=== PATIENT | male | born 1990 | race Caucasian/White ===

== ENCOUNTER 2020-01-30 03:05 | Emergency (ER) | payer OTHER ==
[2020-01-30] MEDS ORDERED: BABY ASPIRIN 81 MG CHEW PO ONE (03:23)
--- NOTE | 2020-01-30 03:24 | ERPHSYRPT ---
- History of Present Illness Time Seen by Provider: 01/30/20 03:23 Historian: patient Exam Limitations: no limitations Physician History: Is a 30-year-old white male who approximately 2 weeks ago began having some intermittent chest pain. Ultimately, he was seen by target setter who performed a work-up including an echocardiogram. The target setter did not require any treatment for this patient or any restrictions of his activity. Patient symptoms continued. He was having some sinus issues and was put on steroids for this condition. He completed that steroid treatment. He was seen for ear infection as well as some anxiety issues. He was restarted on steroids and given a prescription for hydroxyzine and Lexapro. The hydroxyzine and Lexapro was to help with his anxiety issues. Patient states he has not been taking his hydroxyzine. He has been tapering down to once a day steroid dose. He states he has been on the steroids, this round, and Lexapro for approximately 6 days. He is here today because of a burning sensation in his chest that is localized substernal without radiation. At least seen at an emergency room and underwent a chest x-ray and CAT scan of the chest. The CAT scan of the chest that was done within the last 2 weeks showed no pulmonary emboli and no acute cardiopulmonary process. Patient is refusing chest x-ray today because he had the chest x-ray and CAT scan of the chest within the last couple weeks. Timing/Duration: week(s) (Last couple weeks), intermittent, worse Quality: burning Location: substernal Chest Pain Radiation: no radiation Severity of Pain-Max: moderate Severity of Pain-Current: mild Modifying Factors: Improves With: nothing Associated Symptoms: palpitations, diaphoresis, other (Insomnia) Prior Chest Pain/Cardiac Workup: echocardiography, recently seen/treated Nitro Today/Relief: no nitro taken today Aspirin Treatment Today: no aspirin today Allergies/Adverse Reactions: No Known Drug Allergies Allergy (Verified 01/30/20 03:29) Home Medications: Escitalopram Oxalate 10 mg [Lexapro 10 MG] 10 mg PO DAILY 01/30/20 [History] Prednisone 20 mg [Deltasone 20 mg] 20 mg PO DAILY 01/30/20 [History] Travel Risk - International Travel Have you traveled outside of the country in past 3 weeks: No - Coronavirus Screening Are you exhibiting any of the following symptoms?: No Close contact with a COVID-19 positive Pt in past 14-21 Days: No - Review of Systems Constitutional: No Symptoms Eyes: No Symptoms Ears, Nose, & Throat: No Symptoms Respiratory: No Symptoms Cardiac: Chest Pain Abdominal/Gastrointestinal: No Symptoms Genitourinary Symptoms: No Symptoms Musculoskeletal: No Symptoms Skin: No Symptoms Neurological: No Symptoms Psychological: No Symptoms Endocrine: No Symptoms Hematologic/Lymphatic: No Symptoms Immunological/Allergic: No Symptoms All Other Systems: Reviewed and Negative - Past Medical History Pertinent Past Medical History: Yes Neurological History: No Pertinent History ENT History: No Pertinent History Cardiac History: No Pertinent History Respiratory History: No Pertinent History Endocrine Medical History: No Pertinent History Musculoskeletal History: No Pertinent History GI Medical History: No Pertinent History History: No Pertinent History Psycho-Social History: Anxiety Male Reproductive Disorders: No Pertinent History - Past Surgical History Past Surgical History: No Neuro Surgical History: No Pertinent History Cardiac: No Pertinent History Respiratory: No Pertinent History Gastrointestinal: No Pertinent History Genitourinary: No Pertinent History Musculoskeletal: No Pertinent History Male Surgical History: No Pertinent History - Nursing Vital Signs Nursing Vital Signs: Initial Vital Signs Temperature 97.6 F 01/30/20 03:07 Pulse Rate 94 H 01/30/20 03:07 Respiratory Rate 18 01/30/20 03:07 Blood Pressure 152/99 01/30/20 03:07 O2 Sat by Pulse Oximetry 99 01/30/20 03:07 Pain Scale Pain Intensity 4 - Physical Exam General Appearance: no apparent distress, alert, anxiety Eye Exam: PERRL/EOMI, eyes nml inspection Ears, Nose, Throat Exam: normal ENT inspection, moist mucous membranes Neck Exam: normal inspection, non-tender, supple, full range of motion Respiratory Exam: normal breath sounds, chest tenderness (Described as burning), lungs clear, airway intact, No respiratory distress Cardiovascular Exam: regular rate/rhythm, normal heart sounds, normal peripheral pulses Gastrointestinal/Abdomen Exam: soft, normal bowel sounds, No tenderness Rectal Exam: not done Back Exam: normal inspection, normal range of motion, No CVA tenderness Extremity Exam: normal inspection, normal range of motion, pelvis stable Neurologic Exam: alert, oriented x 3, cooperative, 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, nml cerebellar function, nml station & gait, sensation nml Skin Exam: normal color, warm, dry Lymphatic Exam: No adenopathy SpO2 Interpretation: normal O2 Delivery: Room Air - Course Nursing assessment & vital signs reviewed: Yes EKG Interpreted by Me: RATE, Sinus Rhythm, NORMAL AXIS, NORMAL INTERVALS, NORMAL QRS, NORMAL ST-T, Other (No acute ischemic changes.) Ordered Tests: Active Orders 24 hr Category Date Time Status Six Pack Packer STAT Care 01/30/20 03:24 Active EKG-ER Only STAT Care 01/30/20 03:23 Active IV Insertion STAT Care 01/30/20 03:23 Active Pulse Oximetry (ED) STAT Care 01/30/20 03:23 Active CHEST 1 VIEW (PORTABLE) Stat Exams 01/30/20 03:24 Ordered CBC W DIFF Stat Lab 01/30/20 03:30 Completed CMP Stat Lab 01/30/20 03:30 Completed D-DIMER QUANTITATIVE Stat Lab 01/30/20 03:30 Completed NT PRO BNP Stat Lab 01/30/20 03:30 Completed PROTIME WITH INR Stat Lab 01/30/20 03:30 Completed TROPONIN Q3H Lab 01/30/20 03:30 Completed TROPONIN Q3H Lab 01/30/20 06:30 Ordered TROPONIN Q3H Lab 01/30/20 09:30 Ordered TROPONIN Q3H Lab 01/30/20 12:30 Ordered TROPONIN Q3H Lab 01/30/20 15:30 Ordered Medication Summary Discontinued Medications Generic Name Dose Route Start Last Admin Trade Name Freq PRN Reason Stop Dose Admin Aspirin 324 mg 01/30/20 03:23 01/30/20 03:28 Baby Aspirin 81 Mg Chew PO 01/30/20 03:24 324 mg STAT ONE Administration Aspirin Confirm 01/30/20 03:27 Baby Aspirin 81 Mg Chew Administered 01/30/20 03:28 Dose 324 mg .ROUTE .STK-MED ONE Lorazepam 1 mg 01/30/20 05:07 Ativan 2 Mg/1 Ml Vial IV 01/30/20 05:08 STAT ONE Lab/Rad Data: Laboratory Result Diagrams 01/30/20 03:30 01/30/20 03:30 Laboratory Results 01/30/20 01/30/20 01/30/20 Range/Units 03:30 03:30 03:30 WBC (4.0-10.5) K/mm3 RBC (4.1-5.6) M/mm3 Hgb (12.5-18.0) gm/dl Hct (42-50) % MCV (78-100) fl MCH (26-32) pg MCHC (32-36) g/dl RDW (11.5-14.0) % Plt Count (150-450) K/mm3 MPV (7.5-11.0) fl Gran % (36.0-66.0) % Eos # (Auto) (0-0.5) Absolute Lymphs (auto) (1.0-4.6) Absolute Monos (auto) (0.0-1.3) Lymphocytes % (24.0-44.0) % Monocytes % (0.0-12.0) % Eosinophils % (0.00-5.0) % Basophils % (0.0-0.4) % Absolute Granulocytes (1.4-6.9) Basophils # (0-0.4) PT 14.1 H (8.83-12.87) SECONDS INR 1.25 (0.8-3.0) D-Dimer < 215 L (215-500) ng/mL Sodium 137 (137-145) mmol/L Potassium 3.6 (3.5-5.1) mmol/L Chloride 100 (98-107) mmol/L Carbon Dioxide 29 (22-30) mmol/L Anion Gap 12.6 (5-15) MEQ/L BUN 14 (9-20) mg/dL Creatinine 1.04 (0.66-1.25) mg/dL Estimated GFR > 60.0 ML/MIN Glucose 105 (74-106) mg/dL Calcium 9.9 (8.4-10.2) mg/dL Total Bilirubin 0.70 (0.2-1.3) mg/dL AST 20 (17-59) U/L ALT 37 (0-50) U/L Alkaline Phosphatase 73 (38-126) U/L Troponin I < 0.012 (0.000-0.034) ng/mL NT-Pro-B Natriuret Pep 28.4 (0-450) pg/mL Serum Total Protein 8.4 H (6.3-8.2) g/dL Albumin 4.7 (3.5-5.0) g/dL 01/30/20 Range/Units 03:30 WBC 12.4 H (4.0-10.5) K/mm3 RBC 5.83 H (4.1-5.6) M/mm3 Hgb 16.9 (12.5-18.0) gm/dl Hct 50.3 H (42-50) % MCV 86.3 (78-100) fl MCH 29.0 (26-32) pg MCHC 33.6 (32-36) g/dl RDW 13.9 (11.5-14.0) % Plt Count 318 (150-450) K/mm3 MPV 10.1 (7.5-11.0) fl Gran % 54.7 (36.0-66.0) % Eos # (Auto) 0.21 (0-0.5) Absolute Lymphs (auto) 4.05 (1.0-4.6) Absolute Monos (auto) 1.33 H (0.0-1.3) Lymphocytes % 32.7 (24.0-44.0) % Monocytes % 10.7 (0.0-12.0) % Eosinophils % 1.7 (0.00-5.0) % Basophils % 0.2 (0.0-0.4) % Absolute Granulocytes 6.77 (1.4-6.9) Basophils # 0.03 (0-0.4) PT (8.83-12.87) SECONDS INR (0.8-3.0) D-Dimer (215-500) ng/mL Sodium (137-145) mmol/L Potassium (3.5-5.1) mmol/L Chloride (98-107) mmol/L Carbon Dioxide (22-30) mmol/L Anion Gap (5-15) MEQ/L BUN (9-20) mg/dL Creatinine (0.66-1.25) mg/dL Estimated GFR ML/MIN Glucose (74-106) mg/dL Calcium (8.4-10.2) mg/dL Total Bilirubin (0.2-1.3) mg/dL AST (17-59) U/L ALT (0-50) U/L Alkaline Phosphatase (38-126) U/L Troponin I (0.000-0.034) ng/mL NT-Pro-B Natriuret Pep (0-450) pg/mL Serum Total Protein (6.3-8.2) g/dL Albumin (3.5-5.0) g/dL - Progress Progress: improved, re-examined Air Movement: good Blood Culture(s) Obtained: No Antibiotics given: No Counseled pt/family regarding: lab results, diagnosis, need for follow-up - Departure Departure Disposition: Home Clinical Impression: Non-cardiac chest pain, Anxiety, Insomnia, Medication reaction Condition: Stable Critical Care Time: No Referrals: GISSELL WATKINS [Primary Care Provider] - Additional Instructions: Stop your prednisone. Stop your hydroxyzine. Continue your Lexapro as prescribed. Keep your appointment with your prescribing provider next week. Keep your CAT scan of your head appointment next week.
[2020-01-30] MEDS ORDERED: BABY ASPIRIN 81 MG CHEW ONE (03:27)
[2020-01-30 03:34] LABS: Absolute Neutrophil Ct (ANC) 6.77 (1.4-6.9); BASOPHIL % 0.2 % (0.0-0.4); Basophil (Absolute #) 0.03 (0-0.4); Eosinophil % 1.7 % (0.00-5.0); Eosinophil (Absolute #) 0.21 (0-0.5); Hematocrit 50.3 % (42-50); Hemoglobin 16.9 gm/dl (12.5-18.0); Lymphocyte (Absolute #) 4.05 (1.0-4.6); Lymphocytes % 32.7 % (24.0-44.0); Mean Cell Volume 86.3 fl (78-100); Mean Corpuscular Hgb Concent. 33.6 g/dl (32-36); Mean Platelet Volume 10.1 fl (7.5-11.0); Monocyte (Absolute #) 1.33 (0.0-1.3); Monocytes % 10.7 % (0.0-12.0); Neutrophil % 54.7 % (36.0-66.0); Platelet Count 318 K/mm3 (150-450); Red Blood Count 5.83 M/mm3 (4.1-5.6); Red Cell Distribution Width 13.9 % (11.5-14.0); White Blood Count 12.4 K/mm3 (4.0-10.5)
[2020-01-30 03:41] LABS: INR 1.25 (0.8-3.0); PROTIME 14.1 SECONDS (8.83-12.87)
[2020-01-30 03:52] LABS: D-DIMER QUANTITATIVE < 215 ng/mL (215-500)
[2020-01-30 03:54] LABS: ALBUMIN 4.7 g/dL (3.5-5.0); ALKALINE PHOSPHATASE 73 U/L (38-126); ANION GAP 12.6 MEQ/L (5-15); BLOOD UREA NITROGEN 14 mg/dL (9-20); CHLORIDE 100 mmol/L (98-107); Calcium 9.9 mg/dL (8.4-10.2); Carbon Dioxide 29 mmol/L (22-30); Creatinine 1 1.04 mg/dL (0.66-1.25); EST GLOMERULAR FILTRATION RATE > 60.0 ML/MIN; Glucose 105 mg/dL (74-106); NT PRO BNP 28.4 pg/mL (0-450); Potassium 3.6 mmol/L (3.5-5.1); SGOT/AST 20 U/L (17-59); SGPT/ALT 37 U/L (0-50); SODIUM 137 mmol/L (137-145); Total Protein 8.4 g/dL (6.3-8.2)
[2020-01-30] MEDS ORDERED: Ativan 2 MG/1 ML VIAL IV ONE (05:07)
[2020-01-30 05:08] VITALS: O2SAT 97
[2020-01-30] MEDS ORDERED: Ativan 2 MG/1 ML VIAL ONE (05:18)
[2020-01-30 05:28] VITALS: BP 141/93; PULSE 92
== END 2020-01-30 05:45 | disposition home or self-care (01) ==
LOC: ED 03:05
DX: R07.89 Other chest pain (principal); F41.9 Anxiety disorder, unspecified; G47.00 Insomnia, unspecified; F51.9 Sleep disorder not due to a substance or known physiological condition, unspecified; T43.595A Adverse effect of other antipsychotics and neuroleptics, initial encounter; Y92.9 Unspecified place or not applicable
CPT/HCPCS: 36000; 36415; 80053; 83880; 84484; 85025; 85379; 85610; 93005; 93041; 94760; 96374; 99284; J2060; A9270-GY

== ENCOUNTER 2020-03-07 16:41 | Emergency (ER) | payer OTHER ==
--- NOTE | 2020-03-07 16:45 | ERPHSYRPT ---
- History of Present Illness Time Seen by Provider: 03/07/20 16:45 Source: patient, EMS Exam Limitations: no limitations Physician History: This is a 30-year-old white male who has a history of anxiety and depression as well as insomnia issues. Patient was placed on trazodone to help him sleep last night, he made a comment to his about committing suicide if he does not get these issues of anxiety insomnia worked out. The emergency [place] [facility] paperwork says that he is a danger to himself and others. We in the emergency department were contacted by [facility] to tell us that this patient would be coming into the emergency room. He would have an emergency [place] [facility] (ED). Patient arrived via ambulance with the ED papers and hand. Patient issues are anxiety, depression, insomnia and suicidal ideation. He denies chest pain, shortness of breath or abdominal pain. Timing/Duration: yesterday Severity of Symptoms-Max: moderate Severity of Symptoms-Current: moderate Context related to: other (Issues, insomnia issues, depression issues) Suicidal thoughts: other (Reaction/comments to spouse) Associated Symptoms: anxiety, depressed, insomnia Previous symptoms: same symptoms as today Allergies/Adverse Reactions: No Known Drug Allergies Allergy (Verified 01/30/20 03:29) Home Medications: Escitalopram Oxalate 10 mg [Lexapro 10 MG] 10 mg PO DAILY 01/30/20 [History] Prednisone 20 mg [Deltasone 20 mg] 20 mg PO DAILY 01/30/20 [History] Desvenlafaxine [Desvenlafaxine ER] 50 mg PO DAILY 03/07/20 [History] Fluconazole [Diflucan ] 150 mg PO DAILY 03/07/20 [History] Omeprazole 20 mg PO DAILY 03/07/20 [History] Temazepam 30 mg PO DAILY 03/07/20 [History] Trazodone HCl 50 mg [Desyrel 50 mg] 50 mg PO DAILY 03/07/20 [History] Hx Tetanus, Diphtheria Vaccination/Date Given: No Hx Influenza Vaccination/Date Given: No Hx Pneumococcal Vaccination/Date Given: No Travel Risk - International Travel Have you traveled outside of the country in past 3 weeks: No - Coronavirus Screening Are you exhibiting any of the following symptoms?: No Close contact with a COVID-19 positive Pt in past 14-21 Days: No - Past Medical History Pertinent Past Medical History: Yes Neurological History: No Pertinent History ENT History: No Pertinent History Cardiac History: No Pertinent History Respiratory History: No Pertinent History Endocrine Medical History: No Pertinent History Musculoskeletal History: No Pertinent History GI Medical History: No Pertinent History History: No Pertinent History Psycho-Social History: Anxiety Male Reproductive Disorders: No Pertinent History Other Medical History: has been on prednisone for ear ache - Past Surgical History Past Surgical History: No Neuro Surgical History: No Pertinent History Cardiac: No Pertinent History Respiratory: No Pertinent History Gastrointestinal: No Pertinent History Genitourinary: No Pertinent History Musculoskeletal: No Pertinent History Male Surgical History: No Pertinent History - Social History Smoking Status: Never smoker Exposure to second hand smoke: No Drug Use: none Patient Lives Alone: No - Review of Systems Constitutional: No Symptoms Eyes: No Symptoms Ears, Nose, & Throat: No Symptoms Respiratory: No Symptoms Cardiac: No Symptoms Abdominal/Gastrointestinal: No Symptoms Genitourinary Symptoms: No Symptoms Musculoskeletal: No Symptoms Skin: No Symptoms Neurological: No Symptoms Psychological: No Symptoms Endocrine: No Symptoms Hematologic/Lymphatic: No Symptoms Immunological/Allergic: No Symptoms All Other Systems: Reviewed and Negative - Nursing Vital Signs Nursing Vital Signs: Initial Vital Signs Temperature 99.0 F 03/07/20 16:42 Pulse Rate 121 H 03/07/20 16:42 Respiratory Rate 20 03/07/20 16:42 Blood Pressure 138/91 03/07/20 16:42 O2 Sat by Pulse Oximetry 100 03/07/20 16:42 Pain Scale Pain Intensity 0 - Physical Exam General Appearance: mild distress, alert, anxiety Eyes, Ears, Nose, Throat Exam: normal ENT inspection, moist mucous membranes Neck Exam: normal inspection, non-tender, supple, full range of motion Respiratory Exam: normal breath sounds, lungs clear, airway intact, No chest tenderness, No respiratory distress Cardiovascular Exam: tachycardia Gastrointestinal/Abdominal Exam: soft, normal bowel sounds, No tenderness Extremities Exam: normal inspection, normal range of motion, No evidence of injury Current Suicidality: denies suicide plan Neurological Exam: alert, normal mood/affect, calm, 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 No other changes noted.) Ordered Tests: Active Orders 24 hr Category Date Time Status EKG-ER Only STAT Care 03/07/20 16:46 Active ACETAMINOPHEN Stat Lab 03/07/20 17:30 Completed CBC W DIFF Stat Lab 03/07/20 17:30 Completed CMP Stat Lab 03/07/20 17:30 Completed ETHYL ALCOHOL Stat Lab 03/07/20 17:30 Completed SALICYLATE Stat Lab 03/07/20 17:30 Completed UA W/RFX UR CULTURE Stat Lab 03/07/20 17:37 Completed Urine Triage Profile Stat Lab 03/07/20 17:37 Completed Lab/Rad Data: Laboratory Result Diagrams 03/07/20 17:30 03/07/20 17:30 Laboratory Results 03/07/20 03/07/20 03/07/20 Range/Units 17:37 17:37 17:30 WBC (4.0-10.5) K/mm3 RBC (4.1-5.6) M/mm3 Hgb (12.5-18.0) gm/dl Hct (42-50) % MCV (78-100) fl MCH (26-32) pg MCHC (32-36) g/dl RDW (11.5-14.0) % Plt Count (150-450) K/mm3 MPV (7.5-11.0) fl Gran % (36.0-66.0) % Eos # (Auto) (0-0.5) Absolute Lymphs (auto) (1.0-4.6) Absolute Monos (auto) (0.0-1.3) Lymphocytes % (24.0-44.0) % Monocytes % (0.0-12.0) % Eosinophils % (0.00-5.0) % Basophils % (0.0-0.4) % Absolute Granulocytes (1.4-6.9) Basophils # (0-0.4) Sodium 137 (137-145) mmol/L Potassium 3.9 (3.5-5.1) mmol/L Chloride 102 (98-107) mmol/L Carbon Dioxide 26 (22-30) mmol/L Anion Gap 13.1 (5-15) MEQ/L BUN 12 (9-20) mg/dL Creatinine 0.96 (0.66-1.25) mg/dL Estimated GFR > 60.0 ML/MIN Glucose 106 (74-106) mg/dL Calcium 9.8 (8.4-10.2) mg/dL Total Bilirubin 0.70 (0.2-1.3) mg/dL AST 23 (17-59) U/L ALT 30 (0-50) U/L Alkaline Phosphatase 94 (38-126) U/L Serum Total Protein 8.5 H (6.3-8.2) g/dL Albumin 4.8 (3.5-5.0) g/dL Urine Color YELLOW (YELLOW) Urine Appearance CLEAR (CLEAR) Urine pH 6.0 (5-6) Ur Specific [place] 1.015 (1.005-1.025) Urine Protein NEGATIVE (Negative) Urine Ketones TRACE (NEGATIVE) Urine Blood NEGATIVE (0-5) [place]/ul Urine Nitrite NEGATIVE (NEGATIVE) Urine Bilirubin NEGATIVE (NEGATIVE) Urine Urobilinogen NEGATIVE (0-1) mg/dL Ur Leukocyte Esterase NEGATIVE (NEGATIVE) Urine WBC (Auto) NONE (0-5) /HPF Urine RBC (Auto) NONE (0-2) /HPF U Hyaline Cast (Auto) 0-2 (0-2) /LPF U Epithel Cells (Auto) NONE (FEW) /HPF Urine Bacteria (Auto) NONE (NEGATIVE) /HPF Urine Mucus (Auto) SLIGHT (NEGATIVE) /HPF Urine Culture Reflexed NO (NO) Urine Glucose NEGATIVE (NEGATIVE) mg/dL Salicylates < 1.0 L (2-20) mg/dL Urine Opiates Level NEGATIVE (NEGATIVE) Ur Methadone NEGATIVE (NEGATIVE) Acetaminophen < 10 L (10-30) ug/ml Urine Barbiturates NEGATIVE (NEGATIVE) Ur Phencyclidine (PCP) NEGATIVE (NEGATIVE) Urine Amphetamine NEGATIVE (NEGATIVE) U Benzodiazepine Level NEGATIVE (NEGATIVE) Urine Cocaine NEGATIVE (NEGATIVE) Urine Marijuana (THC) NEGATIVE (NEGATIVE) Ethyl Alcohol < 10 (0-10) mg/dL 03/07/20 Range/Units 17:30 WBC 8.9 (4.0-10.5) K/mm3 RBC 5.66 H (4.1-5.6) M/mm3 Hgb 16.4 (12.5-18.0) gm/dl Hct 49.7 (42-50) % MCV 87.8 (78-100) fl MCH 29.0 (26-32) pg MCHC 33.0 (32-36) g/dl RDW 14.1 H (11.5-14.0) % Plt Count 320 (150-450) K/mm3 MPV 9.9 (7.5-11.0) fl Gran % 66.6 H (36.0-66.0) % Eos # (Auto) 0.02 (0-0.5) Absolute Lymphs (auto) 2.14 (1.0-4.6) Absolute Monos (auto) 0.78 (0.0-1.3) Lymphocytes % 24.2 (24.0-44.0) % Monocytes % 8.8 (0.0-12.0) % Eosinophils % 0.2 (0.00-5.0) % Basophils % 0.2 (0.0-0.4) % Absolute Granulocytes 5.89 (1.4-6.9) Basophils # 0.02 (0-0.4) Sodium (137-145) mmol/L Potassium (3.5-5.1) mmol/L Chloride (98-107) mmol/L Carbon Dioxide (22-30) mmol/L Anion Gap (5-15) MEQ/L BUN (9-20) mg/dL Creatinine (0.66-1.25) mg/dL Estimated GFR ML/MIN Glucose (74-106) mg/dL Calcium (8.4-10.2) mg/dL Total Bilirubin (0.2-1.3) mg/dL AST (17-59) U/L ALT (0-50) U/L Alkaline Phosphatase (38-126) U/L Serum Total Protein (6.3-8.2) g/dL Albumin (3.5-5.0) g/dL Urine Color (YELLOW) Urine Appearance (CLEAR) Urine pH (5-6) Ur Specific [place] (1.005-1.025) Urine Protein (Negative) Urine Ketones (NEGATIVE) Urine Blood (0-5) [place]/ul Urine Nitrite (NEGATIVE) Urine Bilirubin (NEGATIVE) Urine Urobilinogen (0-1) mg/dL Ur Leukocyte Esterase (NEGATIVE) Urine WBC (Auto) (0-5) /HPF Urine RBC (Auto) (0-2) /HPF U Hyaline Cast (Auto) (0-2) /LPF U Epithel Cells (Auto) (FEW) /HPF Urine Bacteria (Auto) (NEGATIVE) /HPF Urine Mucus (Auto) (NEGATIVE) /HPF Urine Culture Reflexed (NO) Urine Glucose (NEGATIVE) mg/dL Salicylates (2-20) mg/dL Urine Opiates Level (NEGATIVE) Ur Methadone (NEGATIVE) Acetaminophen (10-30) ug/ml Urine Barbiturates (NEGATIVE) Ur Phencyclidine (PCP) (NEGATIVE) Urine Amphetamine (NEGATIVE) U Benzodiazepine Level (NEGATIVE) Urine Cocaine (NEGATIVE) Urine Marijuana (THC) (NEGATIVE) Ethyl Alcohol (0-10) mg/dL - Progress Progress: unchanged Counseled pt/family regarding: lab results, diagnosis - Departure Departure Disposition: Transfer Clinical Impression: At risk for danger to others, Suicidal thoughts Condition: Stable Critical Care Time: No Referrals: GISSELL WATKINS [Primary Care Provider] -
[2020-03-07 17:45] LABS: Absolute Neutrophil Ct (ANC) 5.89 (1.4-6.9); BASOPHIL % 0.2 % (0.0-0.4); Basophil (Absolute #) 0.02 (0-0.4); Eosinophil % 0.2 % (0.00-5.0); Eosinophil (Absolute #) 0.02 (0-0.5); Hematocrit 49.7 % (42-50); Hemoglobin 16.4 gm/dl (12.5-18.0); Lymphocyte (Absolute #) 2.14 (1.0-4.6); Lymphocytes % 24.2 % (24.0-44.0); Mean Cell Volume 87.8 fl (78-100); Mean Platelet Volume 9.9 fl (7.5-11.0); Monocyte (Absolute #) 0.78 (0.0-1.3); Monocytes % 8.8 % (0.0-12.0); Neutrophil % 66.6 % (36.0-66.0); Platelet Count 320 K/mm3 (150-450); Red Blood Count 5.66 M/mm3 (4.1-5.6); Red Cell Distribution Width 14.1 % (11.5-14.0); White Blood Count 8.9 K/mm3 (4.0-10.5)
[2020-03-07 17:57] LABS: Appearance CLEAR (CLEAR); Bilirubin NEGATIVE (NEGATIVE); Blood NEGATIVE Ery/ul (0-5); Glucose NEGATIVE (NEGATIVE); Hyaline Casts 0-2 /LPF (0-2); Ketones TRACE (NEGATIVE); Leukocyte Esterase NEGATIVE (NEGATIVE); Mucus SLIGHT /HPF (NEGATIVE); Nitrite NEGATIVE (NEGATIVE); Protein,Urine Dip NEGATIVE (Negative); Specific Gravity 1.015 (1.005-1.025); Urobilinogen NEGATIVE mg/dL (0-1)
[2020-03-07 17:58] LABS: ACETAMINOPHEN < 10 ug/ml (10-30); ALBUMIN 4.8 g/dL (3.5-5.0); ALKALINE PHOSPHATASE 94 U/L (38-126); ANION GAP 13.1 MEQ/L (5-15); BLOOD UREA NITROGEN 12 mg/dL (9-20); CHLORIDE 102 mmol/L (98-107); Calcium 9.8 mg/dL (8.4-10.2); Carbon Dioxide 26 mmol/L (22-30); Creatinine 1 0.96 mg/dL (0.66-1.25); EST GLOMERULAR FILTRATION RATE > 60.0 ML/MIN; ETHYL ALCOHOL < 10 mg/dL (0-10); Glucose 106 mg/dL (74-106); Potassium 3.9 mmol/L (3.5-5.1); SALICYLATE < 1.0 mg/dL (2-20); SGOT/AST 23 U/L (17-59); SGPT/ALT 30 U/L (0-50); SODIUM 137 mmol/L (137-145); Total Protein 8.5 g/dL (6.3-8.2)
[2020-03-07 18:07] LABS: Amphetamine,Urine NEGATIVE (NEGATIVE); Barbiturate,Urine NEGATIVE (NEGATIVE); Benzodiazepine,Urine NEGATIVE (NEGATIVE); Cocaine,Urine NEGATIVE (NEGATIVE); Methadone,Urine NEGATIVE (NEGATIVE); Opiate,Urine NEGATIVE (NEGATIVE); PCP,Urine NEGATIVE (NEGATIVE); THC,Urine NEGATIVE (NEGATIVE)
[2020-03-07 18:24] VITALS: BP 131/79; PULSE 113; O2SAT 99
== END 2020-03-07 20:24 | disposition critical access hospital (66) ==
LOC: ED 16:41
DX: R45.851 Suicidal ideations (principal)
CPT/HCPCS: 36415; 80053; 80307; 81001; 85025; 93005; 99284; G0480

== ENCOUNTER 2021-01-07 20:22 | Emergency (ER) | payer OTHER ==
[2021-01-07] MEDS ORDERED: ARZOL Silver Nitrate Applicator TP ONE (20:35)
[2021-01-07] MEDS ORDERED: PERCOCET TABLET 5/325MG PO ONE (20:40)
[2021-01-07] MEDS ORDERED: Adacel Vial IM ONE ×2 (20:40→20:44)
--- NOTE | 2021-01-07 20:44 | ERPHSYRPT ---
- History of Present Illness Time Seen by Provider: 01/07/21 20:31 Source: patient Exam Limitations: no limitations Physician History: 30 years old right-handed dominant male presented in the ER with a chief complaint of laceration right fifth distal finger. Patient reports he was peeling off stuff in the kitchen and accidentally part of the right fifth finger skin is peeled off. Unsure about tetanus status. Timing/Duration: today, sudden Quality: burning, painful Severity: moderate Location: hands Possible Causes: other Associated Symptoms: denies symptoms Allergies/Adverse Reactions: No Known Drug Allergies Allergy (Verified 03/09/20 11:07) Home Medications: Escitalopram Oxalate 10 mg [Lexapro 10 MG] 10 mg PO DAILY 01/30/20 [History] Prednisone 20 mg [Deltasone 20 mg] 20 mg PO DAILY 01/30/20 [History] Desvenlafaxine [Desvenlafaxine ER] 50 mg PO DAILY 03/07/20 [History] Fluconazole [Diflucan ] 150 mg PO DAILY 03/07/20 [History] Omeprazole 20 mg PO DAILY 03/07/20 [History] Temazepam 30 mg PO DAILY 03/07/20 [History] Trazodone HCl 50 mg [Desyrel 50 mg] 50 mg PO DAILY 03/07/20 [History] Hx Tetanus, Diphtheria Vaccination/Date Given: No Hx Influenza Vaccination/Date Given: No Hx Pneumococcal Vaccination/Date Given: No - Review of Systems Constitutional: No Symptoms Respiratory: No Symptoms Cardiac: No Symptoms Abdominal/Gastrointestinal: No Symptoms Genitourinary Symptoms: No Symptoms Musculoskeletal: Injury Skin: Skin Lesions Neurological: No Symptoms Psychological: No Symptoms - Past Medical History Pertinent Past Medical History: Yes Neurological History: No Pertinent History ENT History: No Pertinent History Cardiac History: No Pertinent History Respiratory History: No Pertinent History Endocrine Medical History: No Pertinent History Musculoskeletal History: No Pertinent History GI Medical History: No Pertinent History History: No Pertinent History Psycho-Social History: Anxiety Male Reproductive Disorders: No Pertinent History Other Medical History: has been on prednisone for ear ache - Past Surgical History Past Surgical History: No Neuro Surgical History: No Pertinent History Cardiac: No Pertinent History Respiratory: No Pertinent History Gastrointestinal: No Pertinent History Genitourinary: No Pertinent History Musculoskeletal: No Pertinent History Male Surgical History: No Pertinent History - Social History Smoking Status: Never smoker Exposure to second hand smoke: No Drug Use: none Patient Lives Alone: No - Nursing Vital Signs Nursing Vital Signs: Initial Vital Signs O2 Sat by Pulse Oximetry 98 01/07/21 20:44 - Physical Exam General Appearance: no apparent distress, alert Ears, Nose, Throat Exam: normal ENT inspection Neck Exam: normal inspection, supple, full range of motion Respiratory Exam: normal breath sounds, lungs clear Cardiovascular Exam: regular rate/rhythm, normal heart sounds Extremity Exam: lacerations (Superficial peeled off skin on the right medial distal volar aspect of finger. Minimal oozing. Intact range of motion at distal interphalangeal joint and intact distal neurovascular.) Skin Exam: normal color SpO2 Interpretation: normal SpO2: 98 O2 Delivery: Room Air Ordered Tests: Medication Summary Discontinued Medications Generic Name Dose Route Start Last Admin Trade Name Freq PRN Reason Stop Dose Admin Diphtheria/Tetanus/Acell Pertussis 0.5 ml 01/07/21 20:40 Tdap --Diph,Pertuss(Acell),Tet Vac/Pf 0.5 Ml Vial IM 01/07/21 20:41 .ONCE ONE Oxycodone/Acetaminophen 1 tab 01/07/21 20:40 Oxycodone Hcl/Apap 5 Mg/325 Mg Tablet PO 01/07/21 20:41 STAT ONE Silver Nitrate Confirm 01/07/21 20:35 Silver Nitrate 1 Pkt Each Administered 01/07/21 20:36 Dose 4 pkt TP .STK-MED ONE - Progress Progress: improved Progress Note: 01/07/21 20:45 Procedure note. Thoroughly cleaned with chlorhexidine and saline. Superficial skin is peeled off and cannot stage. Hemostasis secured with silver nitrate. No rebleeding. Tetanus updated. Recommended Tylenol/ibuprofen as needed for pain. Counseled pt/family regarding: diagnosis, need for follow-up - Departure Departure Disposition: Home Clinical Impression: Finger laceration Qualifiers: Encounter type: initial encounter Finger: little finger Damage to nail status: without damage Foreign body presence: without foreign body Laterality: right Qualified Code(s): S61.216A - Laceration without foreign body of right little finger without damage to nail, initial encounter Condition: Stable Critical Care Time: No Referrals: GISSELL WATKINS NP [Primary Care Provider] - Follow Up with PCP/3 days Instructions: Wound Care (DC) Additional Instructions: Use Tylenol/ibuprofen as needed for pain. Follow-up with primary care for reevaluation. Return to ER for increased swelling pain, redness, discharge etc.
== END 2021-01-07 21:13 | disposition home or self-care (01) ==
LOC: ED 20:22
DX: S61.216A Laceration without foreign body of right little finger without damage to nail, initial encounter (principal); L98.8 Other specified disorders of the skin and subcutaneous tissue; W45.8XXA Other foreign body or object entering through skin, initial encounter; Y93.89 Activity, other specified; Y92.89 Other specified places as the place of occurrence of the external cause
CPT/HCPCS: 90471; 90715; 99283; A9270-GY

== ENCOUNTER 2025-02-04 22:33 | Emergency (ER) | payer BC ==
--- NOTE | 2025-02-04 22:51 | ERPHSYRPT ---
- History of Present Illness Time Seen by Provider: 02/04/25 22:50 Source: patient Exam Limitations: no limitations Physician History: Patient presents with generalized weakness, dizziness, and a presyncopal sensation which began after taking their afternoon medications. Patient reports similar, but less severe, episodes since starting benztropine. Symptoms were severe enough to cause difficulty maintaining alertness while driving. The patient also reports significant xerostomia and a new onset of transient bilateral lower extremity paresthesias tonight. Allergies/Adverse Reactions: prednisone Adverse Reaction (Verified 02/04/25 23:45) Home Medications: Fluvoxamine Maleate [Fluvoxamine Maleate ER] 50 mg PO DAILY 10/11/24 [History] Propranolol HCl 10 mg PO BID 10/11/24 [History] Quetiapine Fumarate [Quetiapine Fumarate ER] 400 mg PO HS 10/11/24 [History] Benztropine Mesylate 3 mg PO HS 02/04/25 [History] Quetiapine Fumarate 150 mg PO HS 02/04/25 [History] Hx Tetanus, Diphtheria Vaccination/Date Given: No Hx Influenza Vaccination/Date Given: No Hx Pneumococcal Vaccination/Date Given: No Travel Risk - Emerging Infectious Disease Are you exhibiting symptoms associated with any current EIDs: No - Past Medical History Pertinent Past Medical History: Yes Neurological History: No Pertinent History ENT History: No Pertinent History Cardiac History: No Pertinent History Respiratory History: No Pertinent History Endocrine Medical History: No Pertinent History Musculoskeletal History: No Pertinent History GI Medical History: No Pertinent History History: No Pertinent History Psycho-Social History: Anxiety Male Reproductive Disorders: No Pertinent History Other Medical History: has been on prednisone for ear ache - Past Surgical History Past Surgical History: No Neuro Surgical History: No Pertinent History Cardiac: No Pertinent History Respiratory: No Pertinent History Gastrointestinal: No Pertinent History Genitourinary: No Pertinent History Musculoskeletal: No Pertinent History Male Surgical History: No Pertinent History - Social History Smoking Status: Never smoker Exposure to second hand smoke: No Drug Use: none Patient Lives Alone: No - Social Determinants of Health Will the patient participate in the screening: Declined to provide - Review of Systems All Other Systems: Reviewed and Negative Physical Exam - Nursing Vital Signs Nursing Vital Signs: Initial Vital Signs Temperature 97.5 F 02/04/25 22:34 Pulse Rate 125 H 02/04/25 22:34 Respiratory Rate 22 02/04/25 22:34 Blood Pressure 142/85 12/05/25 22:34 O2 Sat by Pulse Oximetry 97 02/04/25 22:34 Pain Scale Pain Intensity 0 - Tow Coma Scale Best Eye Response (Tow): (4) open spontaneously Best Verbal Response (Shakila): (5) oriented Best Motor Response (Tow): (6) obeys commands Tow Total: 15 - Physical Exam General Appearance: no apparent distress, anxiety Neck Exam: normal inspection, non-tender, supple, full range of motion, No carotid bruit Respiratory: normal breath sounds, lungs clear, airway intact, No respiratory distress Cardiovascular: normal heart sounds, tachycardia, capillary refill <2 sec Gastrointestinal: soft, No tenderness Mental Status: alert, oriented x 3, cooperative publicist Exam: normal hearing, normal speech Skin Exam: normal color, warm, dry, No rash SpO2 Interpretation: normal O2 Delivery: Room Air - Course Nursing assessment & vital signs reviewed: Yes EKG Interpreted by Me: RATE ([id number]), Sinus Tach, NORMAL AXIS, NORMAL INTERVALS, NORMAL QRS, NORMAL ST-T Ordered Tests: Active Orders 24 hr Category Date Time Status Test Car Driver STAT Care 02/04/25 23:02 Completed EKG-ER Only STAT Care 02/04/25 23:02 Completed IV Insertion STAT Care 02/04/25 23:02 Completed Orthostatic Vital Signs STAT Care 02/04/25 23:02 Completed CBC W DIFF Stat Lab 02/04/25 22:55 Completed CMP Stat Lab 02/04/25 22:55 Completed Lactic Acid Stat Lab 02/04/25 23:02 Completed MAGNESIUM Stat Lab 02/04/25 22:55 Completed TROPONIN Q2H Lab 02/04/25 22:55 Completed TSH, 3RD Generation Stat Lab 02/04/25 22:55 Completed UA W/RFX UR CULTURE Stat Lab 02/04/25 23:31 Completed Urine Triage Profile Stat Lab 02/04/25 23:31 Completed Medication Summary Discontinued Medications Generic Name Dose Route Start Last Admin Trade Name Freq PRN Reason Stop Dose Admin Sodium Chloride 1,000 mls @ 999 mls/hr 02/04/25 23:02 02/04/25 23:25 Sodium Chloride 0.9% 1000 Ml IV 02/05/25 00:02 999 mls/hr .Q1H1M STA Administration Sodium Chloride Confirm 02/04/25 23:24 Sodium Chloride 0.9% 1000 Ml Administered 02/04/25 23:25 Dose 1,000 mls @ ud .ROUTE .[facility] Lab/Rad Data: Laboratory Result Diagrams 02/04/25 22:55 02/04/25 22:55 Laboratory Results 02/05/25 02/04/25 02/04/25 Range/Units 00:00 23:31 23:31 WBC (4.23-9.07) x10^3/uL RBC (4.63-6.08) x10^6/uL Hgb (13.7-17.5) g/dL Hct (40.1-51.0) % MCV (79.0-92.2) fL MCH (25.7-32.2) pg MCHC (32.3-36.5) g/dL RDW (11.6-14.4) % Plt Count (163-337) x10^3/uL MPV (9.4-12.4) fL Gran % (34.0-67.9) % Immature Gran % (Auto) (0.001-0.429) % Nucleat RBC Rel Count (0.00-0.2) % Eos # (Auto) (0.04-0.54) x10^3/uL Immature Gran # (Auto) (0.001-0.031) x10^3u/L Absolute Lymphs (auto) (1.32-3.57) x10^3/uL Absolute Monos (auto) (0.30-0.82) x10^3/uL Absolute Nucleated RBC (0.00-0.012) x10^3u/L Lymphocytes % (21.8-53.1) % Monocytes % (5.3-12.2) % Eosinophils % (0.8-7.0) % Basophils % (0.2-1.2) % Absolute Granulocytes (1.78-5.38) x10^3/uL Basophils # (0.01-0.08) x10^3/uL Sodium (135-145) mmol/L Potassium (3.5-5.1) mmol/L Chloride (98-107) mmol/L Carbon Dioxide (22-30) mmol/L Anion Gap (5-15) MEQ/L BUN (9-20) mg/dL Creatinine (0.66-1.25) mg/dL Estimated GFR ML/MIN Glucose (74-106) mg/dL Hemoglobin A1c 5.39 (4.5-6.0) % Lactic Acid (0.4-2.0) Calcium (8.4-10.2) mg/dL Magnesium (1.6-2.3) mg/dL Total Bilirubin (0.2-1.3) mg/dL AST (17-59) U/L ALT (0-50) U/L Alkaline Phosphatase (38-126) U/L Troponin I (0.000-0.033) ng/mL Serum Total Protein (6.3-8.2) g/dL Albumin (3.5-5.0) g/dL Free T4 (0.78-2.19) ng/dL TSH 3rd Generation (0.470-4.680) mIU/L Urine Color Yellow (Yellow) Urine Appearance Clear (Clear) Urine pH 6.0 (4.6-8.0) Ur Specific Wisner 1.015 (1.005-1.030) Urine Protein Negative (Negative) Urine Glucose (UA) Negative (Negative) mg/dL Urine Ketones Trace A (Negative) Urine Blood Trace (Negative) Urine Nitrite Negative (Negative) Urine Bilirubin Negative (Negative) Urine Urobilinogen 0.2 (0.2) mg/dL Ur Leukocyte Esterase Negative (Negative) U Hyaline Cast (Auto) NONE SEEN (0-2) /LPF Urine Microscopic RBC 0-2 (0-5) /HPF Urine Microscopic WBC 0-2 (0-5) /HPF Ur Epithelial Cells None Seen (None Seen) /HPF Urine Bacteria None Seen (None Seen) /HPF Urine Culture Reflexed NO (NO) Urine Opiates Level NEGATIVE (NEGATIVE) Ur Methadone NEGATIVE (NEGATIVE) Urine Barbiturates NEGATIVE (NEGATIVE) Ur Phencyclidine (PCP) NEGATIVE (NEGATIVE) Urine Amphetamine NEGATIVE (NEGATIVE) U Benzodiazepine Level NEGATIVE (NEGATIVE) Urine Cocaine NEGATIVE (NEGATIVE) Urine Marijuana (THC) NEGATIVE (NEGATIVE) 02/04/25 02/04/25 02/04/25 Range/Units 23:02 22:55 22:55 WBC (4.23-9.07) x10^3/uL RBC (4.63-6.08) x10^6/uL Hgb (13.7-17.5) g/dL Hct (40.1-51.0) % MCV (79.0-92.2) fL MCH (25.7-32.2) pg MCHC (32.3-36.5) g/dL RDW (11.6-14.4) % Plt Count (163-337) x10^3/uL MPV (9.4-12.4) fL Gran % (34.0-67.9) % Immature Gran % (Auto) (0.001-0.429) % Nucleat RBC Rel Count (0.00-0.2) % Eos # (Auto) (0.04-0.54) x10^3/uL Immature Gran # (Auto) (0.001-0.031) x10^3u/L Absolute Lymphs (auto) (1.32-3.57) x10^3/uL Absolute Monos (auto) (0.30-0.82) x10^3/uL Absolute Nucleated RBC (0.00-0.012) x10^3u/L Lymphocytes % (21.8-53.1) % Monocytes % (5.3-12.2) % Eosinophils % (0.8-7.0) % Basophils % (0.2-1.2) % Absolute Granulocytes (1.78-5.38) x10^3/uL Basophils # (0.01-0.08) x10^3/uL Sodium (135-145) mmol/L Potassium (3.5-5.1) mmol/L Chloride (98-107) mmol/L Carbon Dioxide (22-30) mmol/L Anion Gap (5-15) MEQ/L BUN (9-20) mg/dL Creatinine (0.66-1.25) mg/dL Estimated GFR ML/MIN Glucose (74-106) mg/dL Hemoglobin A1c (4.5-6.0) % Lactic Acid 1.0 (0.4-2.0) Calcium (8.4-10.2) mg/dL Magnesium (1.6-2.3) mg/dL Total Bilirubin (0.2-1.3) mg/dL AST (17-59) U/L ALT (0-50) U/L Alkaline Phosphatase (38-126) U/L Troponin I < 0.012 (0.000-0.033) ng/mL Serum Total Protein (6.3-8.2) g/dL Albumin (3.5-5.0) g/dL Free T4 1.40 (0.78-2.19) ng/dL TSH 3rd Generation (0.470-4.680) mIU/L Urine Color (Yellow) Urine Appearance (Clear) Urine pH (4.6-8.0) Ur Specific Wisner (1.005-1.030) Urine Protein (Negative) Urine Glucose (UA) (Negative) mg/dL Urine Ketones (Negative) Urine Blood (Negative) Urine Nitrite (Negative) Urine Bilirubin (Negative) Urine Urobilinogen (0.2) mg/dL Ur Leukocyte Esterase (Negative) U Hyaline Cast (Auto) (0-2) /LPF Urine Microscopic RBC (0-5) /HPF Urine Microscopic WBC (0-5) /HPF Ur Epithelial Cells (None Seen) /HPF Urine Bacteria (None Seen) /HPF Urine Culture Reflexed (NO) Urine Opiates Level (NEGATIVE) Ur Methadone (NEGATIVE) Urine Barbiturates (NEGATIVE) Ur Phencyclidine (PCP) (NEGATIVE) Urine Amphetamine (NEGATIVE) U Benzodiazepine Level (NEGATIVE) Urine Cocaine (NEGATIVE) Urine Marijuana (THC) (NEGATIVE) 02/04/25 02/04/25 02/04/25 Range/Units 22:55 22:55 22:55 WBC 7.3 (4.23-9.07) x10^3/uL RBC 5.51 (4.63-6.08) x10^6/uL Hgb 16.0 (13.7-17.5) g/dL Hct 46.8 (40.1-51.0) % MCV 84.9 (79.0-92.2) fL MCH 29.0 (25.7-32.2) pg MCHC 34.2 (32.3-36.5) g/dL RDW 13.1 (11.6-14.4) % Plt Count 303 (163-337) x10^3/uL MPV 9.9 (9.4-12.4) fL Gran % 41.2 (34.0-67.9) % Immature Gran % (Auto) 0.3 (0.001-0.429) % Nucleat RBC Rel Count 0.0 (0.00-0.2) % Eos # (Auto) 0.39 (0.04-0.54) x10^3/uL Immature Gran # (Auto) 0.02 (0.001-0.031) x10^3u/L Absolute Lymphs (auto) 3.08 (1.32-3.57) x10^3/uL Absolute Monos (auto) 0.76 (0.30-0.82) x10^3/uL Absolute Nucleated RBC 0.00 (0.00-0.012) x10^3u/L Lymphocytes % 42.1 (21.8-53.1) % Monocytes % 10.4 (5.3-12.2) % Eosinophils % 5.3 (0.8-7.0) % Basophils % 0.7 (0.2-1.2) % Absolute Granulocytes 3.02 (1.78-5.38) x10^3/uL Basophils # 0.05 (0.01-0.08) x10^3/uL Sodium 136 (135-145) mmol/L Potassium 3.9 (3.5-5.1) mmol/L Chloride 101 (98-107) mmol/L Carbon Dioxide 23 (22-30) mmol/L Anion Gap 15.4 H (5-15) MEQ/L BUN 17 (9-20) mg/dL Creatinine 1.12 (0.66-1.25) mg/dL Estimated GFR 87.3 ML/MIN Glucose 130 H (74-106) mg/dL Hemoglobin A1c (4.5-6.0) % Lactic Acid (0.4-2.0) Calcium 10.1 (8.4-10.2) mg/dL Magnesium 2.1 (1.6-2.3) mg/dL Total Bilirubin 0.50 (0.2-1.3) mg/dL AST 26 (17-59) U/L ALT 34 (0-50) U/L Alkaline Phosphatase 78 (38-126) U/L Troponin I (0.000-0.033) ng/mL Serum Total Protein 7.8 (6.3-8.2) g/dL Albumin 4.6 (3.5-5.0) g/dL Free T4 (0.78-2.19) ng/dL TSH 3rd Generation 3.736 (0.470-4.680) mIU/L Urine Color (Yellow) Urine Appearance (Clear) Urine pH (4.6-8.0) Ur Specific Wisner (1.005-1.030) Urine Protein (Negative) Urine Glucose (UA) (Negative) mg/dL Urine Ketones (Negative) Urine Blood (Negative) Urine Nitrite (Negative) Urine Bilirubin (Negative) Urine Urobilinogen (0.2) mg/dL Ur Leukocyte Esterase (Negative) U Hyaline Cast (Auto) (0-2) /LPF Urine Microscopic RBC (0-5) /HPF Urine Microscopic WBC (0-5) /HPF Ur Epithelial Cells (None Seen) /HPF Urine Bacteria (None Seen) /HPF Urine Culture Reflexed (NO) Urine Opiates Level (NEGATIVE) Ur Methadone (NEGATIVE) Urine Barbiturates (NEGATIVE) Ur Phencyclidine (PCP) (NEGATIVE) Urine Amphetamine (NEGATIVE) U Benzodiazepine Level (NEGATIVE) Urine Cocaine (NEGATIVE) Urine Marijuana (THC) (NEGATIVE) - Progress Progress: improved Progress Note: Differential Diagnosis: - Medication side effect / Anticholinergic toxicity (possible due to recent start of benztropine, symptoms of xerostomia, dizziness, and weakness) - Orthostatic hypotension (possible due to presyncopal sensation, dizziness, and use of medications like propranolol and Seroquel) - Dehydration (possible due to generalized weakness and dizziness) - Hypoglycemia (possible due to weakness and dizziness) - Electrolyte abnormality (possible due to weakness and paresthesias) - Vasovagal syncope (possible due to presyncopal sensation) - Cardiac arrhythmia (possible cause of presyncope) Due to the chief complaint, the following diagnoses were also considered but the signs/symptoms, physical exam, and data points are not consistent with any of the following: Myocardial Infarction, Pulmonary Embolism, Aortic Dissection, Stroke/TIA, Sepsis, GI Bleed, Intracranial Hemorrhage, Meningitis, Acute Coronary Syndrome, Cardiac Tamponade, Tension Pneumothorax, or Subarachnoid Hemorrhage. Rationale for Diagnosis and Decision Making: The patient's presentation of weakness, dizziness, presyncope, and xerostomia is highly suspicious for a medication-related etiology, given the temporal association with taking afternoon medications and the recent initiation of benztropine, a drug with significant anticholinergic properties. The plan is to evaluate for other common causes of these symptoms, including orthostatic hypotension, dehydration, and metabolic abnormalities. The workup with orthostatic vital signs, IV fluids, and laboratory studies is aimed at ruling out these conditions and confirming the likely diagnosis of adverse medication effects. Disposition will be determined after this evaluation is complete. Labs, EKG unremarkable. DC home with follow up. Counseled pt/family regarding: lab results, diagnosis, need for follow-up Medical Desision Making - Diagnostic Testing Diagnostic test were ordered, analyzed, and reviewed by me: Yes Radiological Interpretation: Interpreted by me - Risk of complications Low Risk: Low risk of morbidity from additional dx testing or treatment - Departure Departure Disposition: Home Clinical Impression: Non-cardiac chest pain, Panic attack, Feeling faint Condition: Stable Critical Care Time: No Referrals: GISSELL WATKINS NP [Primary Care Provider, [facility]] - Follow up/PCP as directed Instructions: Near Fainting (DC)
[2025-02-04 23:08] LABS: BASOPHIL % 0.7 % (0.2-1.2); Basophil (Absolute #) 0.05 x10^3/uL (0.01-0.08); Eosinophil (Absolute #) 0.39 x10^3/uL (0.04-0.54); Hematocrit 46.8 % (40.1-51.0); Hemoglobin 16.0 g/dL (13.7-17.5); IMMATURE GRAN # 0.02 x10^3u/L (0.001-0.031); IMMATURE GRAN % 0.3 % (0.001-0.429); Lymphocyte (Absolute #) 3.08 x10^3/uL (1.32-3.57); Mean Corpuscular Hemoglobin 29.0 pg (25.7-32.2); Mean Corpuscular Hgb Concent. 34.2 g/dL (32.3-36.5); Monocyte (Absolute #) 0.76 x10^3/uL (0.30-0.82); NUCLEATED RBC # 0.00 x10^3u/L (0.00-0.012); NUCLEATED RBC % 0.0 % (0.00-0.2); Platelet Count 303 x10^3/uL (163-337); Red Blood Count 5.51 x10^6/uL (4.63-6.08); White Blood Count 7.3 x10^3/uL (4.23-9.07)
[2025-02-04 23:19] LABS: Calcium 10.1 mg/dL (8.4-10.2); Carbon Dioxide 23.0 mmol/L (22-30); Creatinine 1 1.12 mg/dL (0.66-1.25); EST GLOMERULAR FILTRATION RATE 87.3 ML/MIN; Glucose 130.0 mg/dL (74-106); Potassium 3.9 mmol/L (3.5-5.1); SGOT/AST 26.0 U/L (17-59); SGPT/ALT 34.0 U/L (0-50); Total Protein 7.8 g/dL (6.3-8.2)
[2025-02-04 23:30] VITALS: TEMP 97.5
[2025-02-05 00:19] VITALS: RESP 18; O2SAT 97
[2025-02-05 00:25] LABS: Glucose, Urine Negative (Negative); Protein,Urine Dip Negative (Negative); RBC 0-2 /HPF (0-5); WBC 0-2 /HPF (0-5)
[2025-02-05 00:42] LABS: Amphetamine,Urine NEGATIVE (NEGATIVE); Barbiturate,Urine NEGATIVE (NEGATIVE); Benzodiazepine,Urine NEGATIVE (NEGATIVE); Cocaine,Urine NEGATIVE (NEGATIVE); Methadone,Urine NEGATIVE (NEGATIVE); Opiate,Urine NEGATIVE (NEGATIVE); PCP,Urine NEGATIVE (NEGATIVE); THC,Urine NEGATIVE (NEGATIVE)
[2025-02-05 01:06] VITALS: BP 109/61; PULSE 86
== END 2025-02-05 01:10 | disposition home or self-care (01) ==
LOC: ED 22:33
DX: F41.0 Panic disorder [episodic paroxysmal anxiety] (principal); R07.9 Chest pain, unspecified; R55 Syncope and collapse; R53.1 Weakness; Z79.899 Other long term (current) drug therapy